=== PATIENT | male | born 1950 | race Caucasian/White ===

== ENCOUNTER 2019-03-11 06:56 | Day surgery (SDC) | payer OTHER ==
[~2019-03-11] VITALS: Ht 172.7 cm; Wt 68.0 kg
[~2019-03-11 06:56] MED LIST: ASPI-378 PO; FURO1TAB33 PO; IRBE300T26 PO; LEVO112T4 PO; METO25TA62 PO; POTA-167 PO; SIMV-13 PO
[2019-03-11] MEDS ORDERED: LIDOCAINE 2%HCL (LOCAL ANESTH.) INJ 20ML MDV ONE (07:46)
[2019-03-11] MEDS ORDERED: IOHEXOL 350 MG/ML 100ML IJ ONE ×3 (07:46→08:44)
[2019-03-11] MEDS ORDERED: VERAPAMIL 2.5MG/ML INJ 2ML VIAL IV ONE (08:08)
[2019-03-11] MEDS ORDERED: ANGIOMAX 250 MG VIAL IV ONE (08:08)
[2019-03-11] MEDS ORDERED: fentaNYL CITRATE 100 MCG/2 ML VL ONE (08:09)
[2019-03-11] MEDS ORDERED: MIDAZOLAM HCL 1MG/1ML-2 ML VIAL ONE ×2 (08:09→08:45)
[2019-03-11] MEDS ORDERED: SODIUM CHL 0.9% 0 ML ONE (08:09)
== END 2019-03-11 11:55 | disposition home or self-care (01) ==
LOC: CATH 06:56
PROVIDERS: ATTEND Internal Medicine Cardiovascular Disease
DX: I25.10 Atherosclerotic heart disease of native coronary artery without angina pectoris (principal); I27.20 Pulmonary hypertension, unspecified; I11.0 Hypertensive heart disease with heart failure; I50.9 Heart failure, unspecified; E78.5 Hyperlipidemia, unspecified; J44.9 Chronic obstructive pulmonary disease, unspecified; Z86.73 Personal history of transient ischemic attack (TIA), and cerebral infarction without residual deficits; Z87.891 Personal history of nicotine dependence; Z79.82 Long term (current) use of aspirin; Z79.899 Other long term (current) drug therapy
CPT/HCPCS: 93460; C1751; C1760; C1894; J1644; J2250; J3010; J7030; Q9967; 99152; 99153